=== PATIENT | female | born 1955 | race Caucasian/White ===

== ENCOUNTER 2018-06-02 19:13 | Emergency (ER) | payer MEDICARE, OTHER ==
[~2018-06-02] VITALS: Ht 157.5 cm; Wt 60.8 kg
[~2018-06-02 19:13] MED LIST: BENADRYL25 MG/10 M PO; FLAGYL500 MG ORAL; KEFLEX500 MG ORAL; KENALOG 0.1% CR15 GM APPLIC; KLONOPIN1 MG ORAL; LAMISIL250 MG ORAL; LEVOFLOXACIN750 MG ORAL; LEVOTHYROXINE25 MCG ORAL; PREDNISONE20 MG ORAL; SERTRALINE HCL25 MG ORAL; SIMVASTATIN40 MG ORAL; WELLBUTRIN XL150 M1 ORAL; ZOCOR20 M1 ORAL
[2018-06-02] MEDS ORDERED: SIMVASTATIN20 MG ORAL (19:29)
--- NOTE | 2018-06-02 19:45 | NUR ---
ED Nurse Note: RECIEVED PT ON [place] AWAKE, ALERT AND ORIENTED X 4, PT HERE WITH C/O HEMATURIA FOR 1 WEEK,PT DENIES PAIN, FEVERS, NAUSEA OR VOMITING OR ANY OTHER COMPLAINTS OR DISCOMFORTS.
[2018-06-02 20:52] LABS: APPEARANCE,URINE SLIGHTLY CLOUDY; BILIRUBIN, URINE NEGATIVE (NEGATIVE); GLUCOSE, URINE (UA) NEGATIVE (NEGATIVE); KETONES,URINE NEGATIVE (NEGATIVE); LEUKOCYTE ESTERASE ,URINE 1+ (NEGATIVE); NITRITE,URINE NEGATIVE (NEGATIVE); PH,URINE 8 (4.5-8.0); PROTEIN,URINE 3+ (NEGATIVE); UROBILINOGEN,URINE NORMAL MG/DL (0.0-1.0)
[2018-06-02 20:55] LABS: COLOR,URINE BROWN
[2018-06-02 21:15] VITALS: BP 111/74
--- NOTE | 2018-06-02 21:17 | Emergency Room Report ---
History of Present Illness General Chief Complaint: Female Urogenital Problems Present Illness HPI 62 YO Female presents to the ED C/O Dark-colored urine 1 week. He denies dysuria, urinary frequency or urgency. Patient denies abdominal pain or tenderness she denies nausea vomiting fevers chills. Patient denies back pain. She reports some increase in fatigue she states that her symptoms began after she started taking pre-made meals called [employer]. Reports that she has a history of hypothyroidism and mild high cholesterol. Patient also states that she takes sertraline, Adderall and Wellbutrin and on occasion as needed Klonopin. She denies any aggravating or relieving symptoms she states that she feels that she has been drinking moderate amount of water. Allergies: Coded Allergies: HALOPERIDOL (Verified Allergy, hives/parkinsonism, 08/10/13) Uncoded Allergies: HALDOL (Allergy, Mild, Hives, 08/10/13) PARKINSONISM Patient History Past Medical History: see triage record Past Surgical History: none Pertinent Family History: none Last Menstrual Period: 10 years ago Now: No : 3 Para: 1 Reviewed Nursing Documentation: PMH: Agreed; PSxH: Agreed Nursing Documentation-PMH Hx Cancer: No Hx Gastrointestinal Problems: Yes Hx Neurological Problems: Yes Hx Dizziness: Yes Hx Headaches: Yes Review of Systems All Other Systems: negative except mentioned in HPI Physical Exam Vital Signs Date Time Temp Pulse Resp B/P (MAP) Pulse Ox O2 Delivery O2 Flow Rate FiO2 06/02/18 19:22 97.9 65 16 119/70 96 Room Air Sp02 EP Interpretation: reviewed, normal General Appearance: no apparent distress, alert, GCS 15, non-toxic Head: normocephalic, atraumatic Eyes: bilateral eye normal inspection, bilateral eye PERRL ENT: hearing grossly normal, normal voice Neck: full range of motion Respiratory: lungs clear, normal breath sounds, speaking full sentences Cardiovascular #1: regular rate, rhythm, no edema Gastrointestinal: normal bowel sounds, non tender, soft Genitourinary: normal inspection, no CVA tenderness Musculoskeletal: back normal, gait/station normal, normal range of motion, non- tender Neurologic: alert, oriented x3, responsive, motor strength/tone normal, sensory intact, normal gait, speech normal, grossly normal Psychiatric: judgement/insight normal Skin: normal color, no rash, warm/dry, well hydrated Medical Decision Making PA Attestation Dr. Lott is my supervising Physician whom patient management has been discussed with. Diagnostic Impression: Primary Impression: Hematuria Qualified Codes: R31.9 - Hematuria, unspecified Additional Impression: UTI (urinary tract infection) Qualified Codes: N30.01 - Acute cystitis with hematuria ER Course 62 YO Female presents to the ED C/O Dark-colored urine 1 week. He denies dysuria, urinary frequency or urgency. Patient denies abdominal pain or tenderness she denies nausea vomiting fevers chills. Patient denies back pain. She reports some increase in fatigue she states that her symptoms began after she started taking pre-made meals called [employer]. Reports that she has a history of hypothyroidism and mild high cholesterol. Patient also states that she takes sertraline, Adderall and Wellbutrin and on occasion as needed Klonopin. She denies any aggravating or relieving symptoms she states that she feels that she has been drinking moderate amount of water. Ddx considered but are not limited to UTi , Pyelo, STI, Stone, nephrotic syndrome, Cystitis Vital signs: are WNL, pt. is afebrile H&PE are most consistent with UTI ORDERS: - UA labs are attached -- RBC's and Proteinuria with few bacteria ED INTERVENTIONS: None required at this time. -I do not identify an emergent condition at this time. With current presentation , pt. is stable for close outpatient follow up and conservative treatment. D/ w pt. to return promptly to ED with worsening or new symptoms.- Pt. verbalizes' understanding and agreement with proposed treatment plan. DISCHARGE: At this time pt. is stable for d/c to home. Will provide printed patient care instructions, and any necessary prescriptions. Care plan and follow up instructions have been discussed with the patient prior to discharge. Labs Test 06/02/18 20:40 Urine Color Brown Urine Appearance Slightly cloudy Urine pH 8 (4.5-8.0) Urine Specific [place] 1.010 (1.005-1.035) Urine Protein 3+ (NEGATIVE) Urine Glucose (UA) Negative (NEGATIVE) Urine Ketones Negative (NEGATIVE) Urine Blood 5+ (NEGATIVE) Urine Nitrite Negative (NEGATIVE) Urine Bilirubin Negative (NEGATIVE) Urine Urobilinogen Normal MG/DL (0.0-1.0) Urine Leukocyte Esterase 1+ (NEGATIVE) Urine RBC 40-60 /HPF (0 - 2) Urine WBC 2-4 /HPF (0 - 2) Urine Squamous Epithelial Cells Few /LPF (NONE/OCC) Urine Bacteria Few /HPF (NONE) Last Vital Signs Date Time Temp Pulse Resp B/P (MAP) Pulse Ox O2 Delivery O2 Flow Rate FiO2 06/02/18 19:22 97.9 65 16 119/70 96 Room Air Status: improved Disposition: HOME, SELF-CARE Condition: Stable Scripts Nitrofurantoin Monohyd/M-Cryst* (MACROBID 100 MG*) 100 Mg Capsule 100 MG ORAL EVERY 12 HOURS for 5 Days, #10 CAP Prov: Lydia Ricardo 06/02/18 Patient Instructions: Hematuria, Adult, Urinary Tract Infection Additional Instructions: Take medications as directed. Follow up with a Primary Care Provider in 3-5 days for UROLOGY EVAL, even if your symptoms have resolved. --Please review list of primary care clinics, if you do not already have a primary care provider Return sooner to ED if new symptoms occur, or current symptoms become worse. - Please note that this Emergency Department Report was dictated using [employer] programmer technology software, occasionally this can lead to erroneous entry secondary to interpretation by the dictation equipment. Lydia Rciardo Jun 02, 2018 21:17
[2018-06-02] MEDS ORDERED: NITROFURANTOIN100 M2 ORAL (21:18)
== END 2018-06-02 21:25 | disposition home or self-care (01) ==
LOC: EMR 20:10
DX: R31.9 Hematuria, unspecified (principal); N39.0 Urinary tract infection, site not specified
CPT/HCPCS: 81003; 99283